=== PATIENT | male | born 1995 | race African-American/Black ===

== ENCOUNTER 2019-11-20 03:59 | Emergency (ER) | payer SELFPAY ==
[~2019-11-20] VITALS: Ht 180.3 cm; Wt 98.0 kg
[2019-11-20] MEDS ORDERED: IBUPROFEN 600MG TABLET PO ONE (04:30)
[2019-11-20 05:00] VITALS: BP 129/88
== END 2019-11-20 05:01 | disposition home or self-care (01) ==
LOC: ER 04:36
DX: J02.9 Acute pharyngitis, unspecified (principal); Z98.890 Other specified postprocedural states
CPT/HCPCS: 99282